=== PATIENT | male | born 1960 | race Caucasian/White ===

== ENCOUNTER → 2020-01-24 | Outpatient (CLI) | payer SELFPAY | LOC: M LABSMTC 09:55 | PROVIDERS: ATTEND Pediatrics | DX: Z20.828 Contact with and (suspected) exposure to other viral communicable diseases (principal) ==

== ENCOUNTER → 2020-10-02 | Outpatient (CLI) | payer OTHER | LOC: M RAD 11:22 | PROVIDERS: ATTEND Orthopaedic Surgery Adult Reconstructive Orthopaedic Surgery | DX: M23.92 Unspecified internal derangement of left knee (principal) ==